=== PATIENT | female | born 1945 | race Caucasian/White ===

== ENCOUNTER 2023-05-23 21:26 | Emergency (ER) | payer MEDICARE, SELFPAY ==
[2023-05-23 21:27] VITALS: BP 143/67; PULSE 55; RESP 16; TEMP 35.8; O2SAT 99; BMI 30.9
--- NOTE | 2023-05-23 21:33 | XRR_ITS ---
PROCEDURE INFORMATION: Exam: XR Right Shoulder Exam date and time: 05/23/2023 9:51 PM Age: 77 years old Clinical indication: Injury or trauma; Blunt trauma (contusions or hematomas); Right; Patient HX: Fall this evening. C/O RT shoulder pain. ; Additional info: Fall pain TECHNIQUE: Imaging protocol: Radiologic exam of the right shoulder. Views: 2 or more views. COMPARISON: No relevant prior studies available. FINDINGS: Bones/joints: Severe acromioclavicular and glenohumeral joint osteoarthritis. Soft tissues: Normal. XR/XR shoulder RT min 2V* [id number] IMPRESSION: 1. Negative for fracture or dislocation. 2. Severe acromioclavicular and glenohumeral joint osteoarthritis.
--- NOTE | 2023-05-23 21:33 | XRR_ITS ---
PROCEDURE INFORMATION: Exam: XR Cervical Spine Exam date and time: 05/23/2023 9:56 PM Age: 77 years old Clinical indication: Injury or trauma; Blunt trauma; Patient HX: Fall this evening. C/O neck pain; Additional info: Fall right side neck pain TECHNIQUE: Imaging protocol: Radiologic exam of the cervical spine. Views: 2 or 3 views. COMPARISON: CR (CHEST, ) 05/23/2023 9:51 PM FINDINGS: Bones/joints: Multilevel moderate to severe disc space narrowing with productive degenerative endplate changes and degenerative disc calcification throughout the cervical spine. Soft tissues: Unremarkable. XR/XR cervical spine 3V* [id number] IMPRESSION: Multilevel moderate to severe disc space narrowing with productive degenerative endplate changes and degenerative disc calcification throughout the cervical spine.
--- NOTE | 2023-05-23 22:13 | ED_ITS ---
HPI - Fall General: Chief Complaint: Fall Stated Complaint: FALL Time Seen by Provider: 05/23/23 21:30 History of Present Illness: Patient presents to the ER with complaints of falling at her house around 5:30 PM. Patient states she fell on her back and now she has upper back right shoulder and neck pain. Patient denied hitting her head at that time. Patient was given ibuprofen 600 mg at approximately 7 PM. Patient [place] any loss of consciousness. Review of Systems General: Reports: 10 or more systems reviewed and unremarkable except in HPI and below Physical Exam Const: COMMON NORMALS: no acute distress, average body habitus, patient oriented x3, no limitations, healthy appearing, alert and well nourished HENMT: COMMON NORMALS: normocephalic, atraumatic, hearing grossly normal bilaterally, external ears normal, Normal external nose present, moist oral mucous membranes and oropharynx normal HEAD & SCALP: normocephalic and atraumatic NOSE: Normal external nose present EXTERNAL EAR: Yes external ears normal Neck/C-Spine: COMMON NORMALS: full ROM, no lymphadenopathy, supple, no meningeal signs, no JVD and Thyroid normal THYROID: Thyroid normal Chest: COMMONS NORMALS: normal inspection of the chest and normal palpation of entire chest wall Resp: COMMON NORMALS: normal respiratory effort, No retractions, No use of accessory muscles and clear to auscultation bilaterally AUSCULTATION: clear to auscultation bilaterally Cardio: COMMON NORMALS: no JVD, regular rate, regular rhythm, S1 normal heart sound present, S2 normal heart sound present, No gallops present (Cardio), No clicks present (Cardio), No murmurs present (Cardio) and No rub (Cardio) RATE: regular rate RHYTHM: regular rhythm HEART SOUNDS: S1 normal heart sound present and S2 normal heart sound present GI: COMMON NORMALS: Normal to inspection, nondistended, normoactive bowel sounds present, Soft to palpation, non-tender, No hepatosplenomegaly present and no masses PALPATION: Yes Soft to palpation and Yes No hepatosplenomegaly present : COMMON NORMALS: Yes no CVA tenderness BLADDER/KIDNEY EXAM: Yes no CVA tenderness Back/Pelvis: COMMON NORMALS: no CVA tenderness Neuro: COMMON NORMALS: patient oriented x3 SENSORIUM/ORIENTATION: Yes alert MENINGEAL SIGNS: Yes no meningeal signs Course Vital Signs: Vital signs: Vital Signs Temperature 96.5 F L 05/23/23 21:27 Pulse Rate 55 L 05/23/23 21:27 Respiratory Rate 16 05/23/23 21:27 Blood Pressure 143/67 05/23/23 21:27 Pulse Oximetry 99 05/23/23 21:27 Oxygen Delivery Me thod Room Air 05/23/23 21:27 MDM - Fall Medical Decision Making Patient presents to the ER with falling and complaining of right-sided neck pain right shoulder pain and right scapular pain. These areas will be x-rayed. X- rays were read by the radiologist as negative for acute fracture but positive for significant arthritis. This was explained to the patient. Patient be discharged home. Differential Diagnosis Unlikely syncope, dislocation of shoulder region, fracture of wrist, compression fracture, concussion with loss of consciousness or concussion without loss of consciousness Medical Records I reviewed the patient's medical records. Lab Data I reviewed the patient's lab results. Radiology Impressions Cervical Spine X-Ray 05/23/23 21:33 IMPRESSION: Multilevel moderate to severe disc space narrowing with productive degenerative endplate changes and degenerative disc calcification throughout the cervical spine. Shoulder X-Ray 05/23/23 21:33 IMPRESSION: 1. Negative for fracture or dislocation. 2. Severe acromioclavicular and glenohumeral joint osteoarthritis. All radiology interpretation(s) finalized by discharge Discharge Plan Discharge Patient Disposition: Home Clinical Impression: Musculoskeletal pain Fall Qualifiers: Encounter type: initial encounter Qualified Code(s): W19.XXXA - Unspecified fall, initial encounter Condition: Stable Discharge Orders: Discharge ED (Routine); Ordered 05/23/23 Ordered By: Cristofer Cesar Referrals: Demetrice Nielson DO [Primary Care Provider] - 1 week Patient Instructions: Musculoskeletal Pain (ED) Activity Restrictions/Additional Instructions: Please continue Tylenol or ibuprofen as needed as directed for pain. Please follow-up with your family practice physician within 7 to 10 days as needed for further evaluation and treatment. 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
[2023-05-23 23:29] VITALS: BP 146/58; PULSE 61; O2SAT 98
== END 2023-05-23 23:32 | disposition home or self-care (01) ==
PROVIDERS: Emergency Provider Emergency Medicine; PCP Family Medicine
DX: M79.18 Myalgia, other site (principal); W19.XXXA Unspecified fall, initial encounter
CPT/HCPCS: 72040; 73030; 99284